=== PATIENT | male | born 1940 | race Caucasian/White ===

== ENCOUNTER 2019-04-16 15:43 | Emergency (ER) | payer OTHER ==
--- NOTE | 2019-04-16 17:23 | ER Document Report ---
ED Medical Screen (RME) - General Chief Complaint: Urinary Retention Stated Complaint: WEAKNESS/URINARY PROBLEM Time Seen by Provider: 04/16/19 17:17 Information source: Patient Notes: Patient presents complaining of weak urinary stream and decreased urine output today. Patient denies any abdominal pain nausea vomiting or fever. Patient complains of generalized weakness as well. hx: BPH, hypertension I have greeted and performed a rapid initial assessment of this patient. A comprehensive ED assessment and evaluation of the patient, analysis of test results and completion of the medical decision making process will be conducted by additional ED providers. - Related Data Allergies/Adverse Reactions: Penicillins Allergy (Verified 04/16/19 17:17) Physical Exam - Vital signs Vitals: Temp Pulse Resp BP Pulse Ox 97.7 F 58 L 18 174/62 H 93 04/16/19 15:59 04/16/19 15:59 04/16/19 15:59 04/16/19 15:59 04/16/19 15:59 - General General appearance: Appears well, Alert - Abdominal Tenderness: Nontender Course - Vital Signs Vital signs: Temp Pulse Resp BP Pulse Ox 97.7 F 58 L 18 174/62 H 93 04/16/19 17:17 04/16/19 15:59 04/16/19 17:17 04/16/19 15:59 04/16/19 17:17
[2019-04-16 18:48] LABS: ABSOLUTE EOSINOPHILS # (AUTO) 0.3 10^3/uL (0.0-0.6); ABSOLUTE LYMPHOCYTES (AUTO) 1.6 10^3/uL (0.5-4.7); ABSOLUTE MONOCYTES (AUTO) 0.5 10^3/uL (0.1-1.4); ABSOLUTE NEUT (AUTO) 3.9 10^3/uL (1.7-8.2); BASOPHILS % (AUTO) 0.7 % (0-2); EOSINOPHILS % (AUTO) 4.3 % (0-6); HEMATOCRIT 41.8 % (37.9-51.0); HEMOGLOBIN 14.2 g/dL (13.5-17.0); LYMPHOCYTES % (AUTO) 25.4 % (13-45); MEAN CORPUSCULAR HEMOGLOBIN 32.9 pg (27.0-33.4); MEAN CORPUSCULAR VOLUME 97 fl (80-97); MONOCYTES % (AUTO) 7.7 % (3-13); PLATELET COUNT 215 10^3/uL (150-450); RED BLOOD COUNT 4.32 10^6/uL (4.35-5.55); RED CELL DISTRIBUTION WIDTH 13.1 % (11.5-14.0); SEGMENTED NEUTROPHILS % (AUTO) 61.9 % (42-78); TOTAL CELLS COUNTED % (AUTO) 100 %; WHITE BLOOD COUNT 6.3 10^3/uL (4.0-10.5)
[2019-04-16 18:54] LABS: APPEARANCE,URINE CLEAR; BILIRUBIN,URINE NEGATIVE (NEGATIVE); COLOR,URINE YELLOW; GLUCOSE, URINE NEGATIVE (NEGATIVE); KETONES,URINE NEGATIVE (NEGATIVE); LEUKOCYTE ESTERASE,URINE NEGATIVE (NEGATIVE); NITRITE,URINE NEGATIVE (NEGATIVE); PROTEIN,URINE NEGATIVE (NEGATIVE); URINE SPECIFIC GRAVITY 1.021
[2019-04-16 19:05] LABS: ALBUMIN 3.7 g/dL (3.5-5.0); ALKALINE PHOSPHATASE 66 U/L (38-126); ANION GAP 7 (5-19); ASPARTATE AMINO TRANSFERASE 31 U/L (17-59); BILIRUBIN,DIRECT 0.1 mg/dL (0.0-0.4); BILIRUBIN,TOTAL 0.5 mg/dL (0.2-1.3); BLOOD UREA NITROGEN 16 mg/dL (7-20); CALCIUM 9.3 mg/dL (8.4-10.2); CARBON DIOXIDE 30 mmol/L (22-30); CHLORIDE 100 mmol/L (98-107); GLUCOSE 93 mg/dL (75-110); POTASSIUM 4.4 mmol/L (3.6-5.0); TOTAL PROTEIN 6.6 g/dL (6.3-8.2)
[2019-04-16 20:54] LABS: A TYPE INFLUENZA AG NEGATIVE (NEGATIVE); B INFLUENZA AG NEGATIVE (NEGATIVE)
[2019-04-16 21:09] VITALS: BP 172/89
--- NOTE | 2019-04-16 21:29 | RADIOLOGY REPORT (SQ) ---
EXAM DESCRIPTION: X-RAY CHEST- One View CLINICAL HISTORY: Generalized weakness COMPARISON: None available TECHNIQUE: Single view of the chest. FINDINGS: There are overlying EKG leads. There is mild nonspecific prominence of the right infrahilar region. Diffusely increased interstitial markings are suggestive of a chronic interstitial process. No pneumothorax or pleural effusion is identified. The cardiomediastinal silhouette is borderline enlarged. The aorta is tortuous in appearance with evidence of atherosclerotic vascular disease. Multilevel degenerative changes of the thoracic spine are poorly visualized on lateral view. There is suggestion of underlying dish. IMPRESSION: 1. Nonspecific prominence of the right infrahilar region. Attention on follow-up is recommended. 2. Suggestion of underlying chronic interstitial process. 3. Borderline enlargement of the cardiac silhouette with a tortuous appearing aorta demonstrating atherosclerotic vascular disease.
--- NOTE | 2019-04-16 21:33 | EKG REPORT ---
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
--- NOTE | 2019-04-16 21:38 | ER Document Report ---
ED General - General Chief Complaint: Urinary Retention Stated Complaint: WEAKNESS/URINARY PROBLEM Time Seen by Provider: 04/16/19 17:17 Primary Care Provider: TULIO REYNOSO MD [ACTIVE STAFF] - Follow up as needed Notes: 78-year-old male with history of benign prostatic hyperplasia presents with urinary retention for 3 to 4 hours this morning. Patient states he usually has urinary frequency and urgency due to his enlarged prostate. Patient states since being in ER he is gotten up to go to the bathroom 4-5 times and is no longer having urinary retention. Patient was also complaining of generalized weakness previously however states he is feeling better. Patient denies any chest pain, shortness of breath, nausea/vomiting/diarrhea, abdominal pain, hematuria, dysuria. Patient states he has a chronic history of constipation that he takes fiber for which usually relieves it. - Related Data Allergies/Adverse Reactions: Penicillins Allergy (Verified 04/16/19 17:17) Past Medical History - General Information source: Patient - Social History Smoking Status: Unknown if Ever Smoked Family History: None Patient has suicidal ideation: No Patient has homicidal ideation: No - Past Medical History Cardiac Medical History: Reports: Hx Hypertension Past Surgical History: Reports: Hx Cholecystectomy Review of Systems - Review of Systems Notes: Constitutional: Negative for fever. HENT: Negative for sore throat. Eyes: Negative for visual changes. Cardiovascular: Negative for chest pain. Respiratory: Negative for shortness of breath. Gastrointestinal: Negative for abdominal pain, vomiting or diarrhea. Genitourinary: Positive for urinary retention since resolved. Negative for dysuria. Musculoskeletal: Negative for back pain. Skin: Negative for rash. Neurological: Positive for weakness since resolved. Negative for headaches or numbness. 10 point ROS negative except as marked above and in HPI. Physical Exam - Vital signs Vitals: Temp Pulse Resp BP Pulse Ox 97.7 F 58 L 18 174/62 H 93 04/16/19 15:59 04/16/19 15:59 04/16/19 15:59 04/16/19 15:59 04/16/19 15:59 - Notes Notes: GENERAL: Well-appearing, well-nourished and in no acute distress. HEAD: Atraumatic, normocephalic. EYES: Pupils equal round and reactive to light, extraocular movements intact, sclera anicteric, conjunctiva are normal. NECK: Normal range of motion, supple without lymphadenopathy or JVD. LUNGS: Breath sounds clear to auscultation bilaterally and equal. No wheezes rales or rhonchi. HEART: Regular rate and rhythm without murmurs, rubs or gallops. ABDOMEN: Soft, nontender, normoactive bowel sounds. No guarding, no rebound. No masses appreciated. EXTREMITIES: Normal range of motion, no pitting or edema. No clubbing or cyanosis. NEUROLOGICAL: Cranial nerves II through XII grossly intact. Normal speech, normal gait. PSYCH: Normal mood, normal affect. SKIN: Warm, Dry, normal turgor, no rashes or lesions noted. Course - Re-evaluation Re-evalutation: 04/16/19 78-year-old male presents with urinary retention and generalized weakness both of which have resolved in the ER today. Nontoxic, well-appearing. Abdomen soft nontender. PE is otherwise unremarkable. Lab work and UA were reassuring. Flu test was negative. Chest x-ray showed some infrahilar pro minence. Chest x-ray report was printed out and discussed with patient and patient's . Patient was given follow-up with PCP and urologist. All questions/concerns addressed prior to discharge. - Vital Signs Vital signs: Temp Pulse Resp BP Pulse Ox 97.6 F 58 L 19 172/89 H 96 04/16/19 19:23 04/16/19 15:59 04/16/19 20:18 04/16/19 20:18 04/16/19 20:18 - Laboratory Result Diagrams: 04/16/19 18:00 04/16/19 18:00 Laboratory results interpreted by me: 04/16/19 04/16/19 15:56 18:00 RBC 4.32 L Urine Blood SMALL H Urine Urobilinogen 2.0 H Discharge - Discharge Clinical Impression: Acute urinary retention Condition: Stable Disposition: HOME, SELF-CARE Additional Instructions: Your urine showed no infection. Your lab work today was reassuring. Your flu test was negative. Please follow-up with your primary care doctor in 3 to 5 days. Please follow-up with your urologist in 1 to 2 weeks. Return to ER if you start having any worsening symptoms, including urinary retention/inability to pee, nausea/vomiting/diarrhea, abdominal pain, chest pain, shortness of breath, coughing, fever, weakness, or any other symptoms that are concerning to you. Referrals: TULIO REYNOSO MD [ACTIVE STAFF] - Follow up as needed
== END 2019-04-16 21:50 | disposition home or self-care (01) ==
LOC: ER 15:43
DX: R33.9 Retention of urine, unspecified (principal); R53.1 Weakness; Z88.0 Allergy status to penicillin; Z90.49 Acquired absence of other specified parts of digestive tract
CPT/HCPCS: 36415; 71046; 80053; 81001; 85025; 87804; 93005; 93010; 99284